=== PATIENT | female | born 1965 | race Caucasian/White ===

== ENCOUNTER 2017-03-27 12:01 | Emergency (ER) | payer MEDICARE ==
[~2017-03-27] VITALS: Ht 175.3 cm; Wt 81.6 kg
[2017-03-27] MEDS ORDERED: LITH300C PO ×2 (12:13)
[2017-03-27] MEDS ORDERED: TRAM50TA2 PO (12:13)
[2017-03-27] MEDS ORDERED: ALBU17IN INH (12:13)
[2017-03-27] MEDS ORDERED: LISI10TA4 PO (12:13)
[2017-03-27] MEDS ORDERED: BUSP30TA PO (12:13)
[2017-03-27] MEDS ORDERED: SYMB16INH INH (12:13)
[2017-03-27] MEDS ORDERED: XANA2TAB2 PO (12:13)
[2017-03-27] MEDS ORDERED: KETOROLAC 60 MG/2 ML VIAL (J1885) IM ONE (12:45)
--- NOTE | 2017-03-27 13:46 | REP ---
Cervical spine series: Four views. History: Neck pain and radiculopathy. Injury in a fall 6 months ago. Findings: Cervical vertebral body heights are preserved. Alignment is normal. No fracture or collapse is seen. There is discogenic spurring at C4-5 and C5-6. Swimmers lateral view shows no additional abnormality. AP view shows osteoarthritic facet hypertrophy on the left at C3-4 and C4-5. No bony destructive lesion is seen. Open mouth odontoid view is unremarkable. Impression: Mild degenerative spondylosis changes. No acute bony abnormality seen. Signed by Kunal Altamirano MD 03/27/2017 04:33 P
--- NOTE | 2017-03-27 13:46 | REP ---
Left shoulder series: Single view. History: Pain. Findings: Single AP view of the left shoulder is presented. There is some inferior glenoid spurring. The glenohumeral and acromioclavicular joints are normally aligned. No acute bony erosive change is seen. No fracture is noted. Impression: Inferior glenoid spurring. No other abnormality noted on this single AP view of the left shoulder. Signed by Kunal Altamirano MD 03/27/2017 04:33 P
[2017-03-27] MEDS ORDERED: ULTR50TA PO ×2 (13:51→13:52)
[2017-03-27 13:52] VITALS: BP 210/98
== END 2017-03-27 14:02 | disposition home or self-care (01) ==
LOC: M ED 13:01
DX: M54.12 Radiculopathy, cervical region (principal); I51.9 Heart disease, unspecified; I10 Essential (primary) hypertension; J44.9 Chronic obstructive pulmonary disease, unspecified; F17.200 Nicotine dependence, unspecified, uncomplicated; M75.82 Other shoulder lesions, left shoulder; M47.892 Other spondylosis, cervical region; Z79.899 Other long term (current) drug therapy; Z88.6 Allergy status to analgesic agent; Z88.1 Allergy status to other antibiotic agents
CPT/HCPCS: 72040; 73020; 96372; 99282; J1885; J3360

== ENCOUNTER 2017-07-08 17:33 | Emergency (ER) | payer MEDICARE ==
[~2017-07-08] VITALS: Ht 175.3 cm; Wt 81.8 kg
[~2017-07-08 17:33] MED LIST: ALBU17IN INH; BUSP30TA PO; LISI10TA4 PO; LITH300C PO; SYMB16INH INH; TRAM50TA2 PO; ULTR50TA8 PO; XANA2TAB2 PO
[2017-07-08 17:34] VITALS: BP 207/96
== END 2017-07-08 18:25 | disposition left against medical advice (07) ==
LOC: M ED 17:33
DX: M25.519 Pain in unspecified shoulder (principal); Z53.29 Procedure and treatment not carried out because of patient's decision for other reasons

== ENCOUNTER 2017-07-09 04:13 | Emergency (ER) | payer MEDICARE ==
[~2017-07-09] VITALS: Ht 175.3 cm; Wt 80.2 kg
[2017-07-09 04:25] VITALS: BP 148/88
[2017-07-09] MEDS ORDERED: MORPHINE 4 MG/ML 1ML SYRINGE IM ONE (05:00)
== END 2017-07-09 05:50 | disposition home or self-care (01) ==
LOC: M ED 04:13 → EDBD 04:13 → M ED 05:50
DX: G89.29 Other chronic pain (principal); M25.512 Pain in left shoulder; I10 Essential (primary) hypertension; F31.9 Bipolar disorder, unspecified; J44.9 Chronic obstructive pulmonary disease, unspecified; F17.200 Nicotine dependence, unspecified, uncomplicated

== ENCOUNTER 2017-11-18 17:01 | Emergency (ER) | payer MEDICARE | END 2017-11-18 20:08 | disposition left against medical advice (07) | LOC: M ED 17:01 | DX: H57.9 Unspecified disorder of eye and adnexa (principal); Z53.21 Procedure and treatment not carried out due to patient leaving prior to being seen by health care provider ==